=== PATIENT | male | born 1930 | race Caucasian/White ===

== ENCOUNTER 2016-10-19 11:30 | Inpatient (IN) | payer MEDICARE, BC ==
[2016-10-19] MEDS ORDERED: SODIUM CHLORIDE 0.9% 500 ML IV STA (11:49)
[2016-10-19 11:51] LABS: Glucose,Whole Blood 100 mg/dL (75-99)
--- NOTE | 2016-10-19 11:58 | ED ---
General Adult HPI - General Chief complaint: Dizziness Stated complaint: RT SIDE HEAVYNESS, DIZZINESS Time Seen by Provider: 10/19/16 11:49 Source: patient, family, RN notes reviewed, old records reviewed Mode of arrival: wheelchair Limitations: no limitations - History of Present Illness Initial comments: This is an 85-year-old male the ER for evaluation of right-sided weakness and heaviness. Patient has history of CVA, memory issues. Patient is also history of dementia and CEA, patient coming in today with right-sided weakness, brings patient in with right-sided weakness for a day and a half or so. Patient is unable to tell her when she is noticing this but she has noticed him having increased weakness on his right side. So there is no sudden onset of symptoms or known onset of symptoms. No traumas. Patient's right ear for further evaluation. Patient's poor strain history is obtained from - Related Data Home Medications Medication Instructions Recorded Confirmed ALPRAZolam [Xanax] 0.25 mg PO TID 10/19/16 10/19/16 Donepezil [Aricept] 10 mg PO HS 10/19/16 10/19/16 Memantine HCl [Namenda Xr] 28 mg PO DAILY 10/19/16 10/19/16 Allergies Allergy/AdvReac Type Severity Reaction Status Date / Time No Known Allergies Allergy Verified 10/19/16 11:44 Review of Systems ROS Statement: Those systems with pertinent positive or pertinent negative responses have been documented in the HPI. ROS Other: All systems not noted in ROS Statement are negative. Past Medical History Additional Past Medical History / Comment(s): dementia History of Any Multi-Drug Resistant Organisms: None Reported Additional Past Surgical History / Comment(s): carotid endartectomy, sleep apnea surgery Past Psychological History: No Psychological Hx Reported Smoking Status: Never smoker Past Alcohol Use History: None Reported Past Drug Use History: None Reported General Exam - General Exam Comments Initial Comments: NIH of 3, patient unable to follow direction Limitations: no limitations General appearance: alert, in no apparent distress Head exam: Present: atraumatic, normocephalic, normal inspection Eye exam: Present: normal appearance, PERRL, EOMI. Absent: scleral icterus, conjunctival injection, periorbital swelling ENT exam: Present: normal exam, mucous membranes moist Neck exam: Present: normal inspection. Absent: tenderness, meningismus, lymphadenopathy Respiratory exam: Present: normal lung sounds bilaterally. Absent: respiratory distress, wheezes, rales, rhonchi, stridor Cardiovascular Exam: Present: regular rate, normal rhythm, normal heart sounds. Absent: systolic murmur, diastolic murmur, rubs, gallop, clicks GI/Abdominal exam: Present: soft, normal bowel sounds. Absent: distended, tenderness, guarding, rebound, rigid Extremities exam: Present: normal inspection, full ROM, normal capillary refill. Absent: tenderness, pedal edema, joint swelling, calf tenderness Back exam: Present: normal inspection Neurological exam: Present: alert, oriented X3, CN II-XII intact Psychiatric exam: Present: normal affect, normal mood Skin exam: Present: warm, dry, intact, normal color. Absent: rash Course Vital Signs 10/19/16 10/19/16 10/19/16 11:34 12:09 12:21 Temperature 97.4 F L Pulse Rate 69 68 66 Respiratory 16 18 15 Rate Blood Pressure 211/92 194/87 197/99 O2 Sat by Pulse 96 99 98 Oximetry 10/19/16 10/19/16 10/19/16 13:18 13:23 13:57 Temperature Pulse Rate 64 72 71 Respiratory 15 15 Rate Blood Pressure 214/95 205/94 O2 Sat by Pulse 96 Oximetry 10/19/16 14:12 Temperature Pulse Rate 75 Respiratory 16 Rate Blood Pressure 164/74 O2 Sat by Pulse 94 L Oximetry - Reevaluation(s) Reevaluation #1: 10/19/16 14:25 Patient has no significant clinical improvement EKG Findings - EKG Comments: EKG Findings:: EKG shows normal sinus rhythm as is a 5, NE 132, QRS 140, QTC 480 Medical Decision Making - Medical Decision Making 85 now here for evaluation of CVA. Right-sided weakness with history of altered mental status and memory deficit. Patient will be admitted for neurological evaluation - Lab Data Result diagrams: 10/19/16 12:00 10/19/16 12:00 Lab Results 10/19/16 10/19/16 10/19/16 Range/Units 11:49 12:00 12:00 WBC 6.8 (3.8-10.6) k/uL RBC 4.92 (4.30-5.90) m/uL Hgb 15.8 (13.0-17.5) gm/dL Hct 46.6 (39.0-53.0) % MCV 94.7 (80.0-100.0) fL MCH 32.1 (25.0-35.0) pg MCHC 33.9 (31.0-37.0) g/dL RDW 13.7 (11.5-15.5) % Plt Count 161 (150-450) k/uL Neutrophils % 45 % Lymphocytes % 43 % Monocytes % 6 % Eosinophils % 2 % Basophils % 1 % Neutrophils # 3.1 (1.3-7.7) k/uL Lymphocytes # 2.9 (1.0-4.8) k/uL Monocytes # 0.4 (0-1.0) k/uL Eosinophils # 0.1 (0-0.7) k/uL Basophils # 0.1 (0-0.2) k/uL PT (9.0-12.0) sec INR (<1.1) APTT (22.0-30.0) sec Sodium (137-145) mmol/L Potassium (3.5-5.1) mmol/L Chloride (98-107) mmol/L Carbon Dioxide (22-30) mmol/L Anion Gap mmol/L BUN (9-20) mg/dL Creatinine (0.66-1.25) mg/dL Est GFR (MDRD) Af Amer (>60 ml/min/1.73 sqM) Est GFR (MDRD) Non-Af (>60 ml/min/1.73 sqM) Glucose (74-99) mg/dL POC Glucose (mg/dL) 100 H (75-99) mg/dL POC Glu [place] [employer] ID [place]a [place] Calcium (8.4-10.2) mg/dL Phosphorus (2.5-4.5) mg/dL Magnesium (1.6-2.3) mg/dL Total Bilirubin (0.2-1.3) mg/dL AST (17-59) U/L ALT (21-72) U/L Alkaline Phosphatase (38-126) U/L Total Creatine Kinase 72 (55-170) U/L CK-MB (CK-2) 1.6 (0.0-2.4) ng/mL CK-MB (CK-2) Rel Index 2.2 Troponin I 0.021 (0.000-0.034) ng/mL Total Protein (6.3-8.2) g/dL Albumin (3.5-5.0) g/dL 10/19/16 10/19/16 Range/Units 12:00 12:00 WBC (3.8-10.6) k/uL RBC (4.30-5.90) m/uL Hgb (13.0-17.5) gm/dL Hct (39.0-53.0) % MCV (80.0-100.0) fL MCH (25.0-35.0) pg MCHC (31.0-37.0) g/dL RDW (11.5-15.5) % Plt Count (150-450) k/uL Neutrophils % % Lymphocytes % % Monocytes % % Eosinophils % % Basophils % % Neutrophils # (1.3-7.7) k/uL Lymphocytes # (1.0-4.8) k/uL Monocytes # (0-1.0) k/uL Eosinophils # (0-0.7) k/uL Basophils # (0-0.2) k/uL PT 11.6 (9.0-12.0) sec INR 1.2 (<1.1) APTT 23.5 (22.0-30.0) sec Sodium 144 (137-145) mmol/L Potassium 3.8 (3.5-5.1) mmol/L Chloride 106 (98-107) mmol/L Carbon Dioxide 27 (22-30) mmol/L Anion Gap 11 mmol/L BUN 13 (9-20) mg/dL Creatinine 1.11 (0.66-1.25) mg/dL Est GFR (MDRD) Af Amer >60 (>60 ml/min/1.73 sqM) Est GFR (MDRD) Non-Af >60 (>60 ml/min/1.73 sqM) Glucose 106 H (74-99) mg/dL POC Glucose (mg/dL) (75-99) mg/dL POC Glu [place] ID Calcium 9.1 (8.4-10.2) mg/dL Phosphorus 3.0 (2.5-4.5) mg/dL Magnesium 1.8 (1.6-2.3) mg/dL Total Bilirubin 0.9 (0.2-1.3) mg/dL AST 35 (17-59) U/L ALT 38 (21-72) U/L Alkaline Phosphatase 69 (38-126) U/L Total Creatine Kinase (55-170) U/L CK-MB (CK-2) (0.0-2.4) ng/mL CK-MB (CK-2) Rel Index Troponin I (0.000-0.034) ng/mL Total Protein 6.5 (6.3-8.2) g/dL Albumin 3.8 (3.5-5.0) g/dL - Radiology Data Radiology results: report reviewed, image reviewed Disposition Clinical Impression: CVA (cerebral vascular accident) Disposition: ADMITTED IP TO THIS [facility] Condition: Fair Referrals: Jessica Ray DO [Primary Care Provider] - 1-2 days
[2016-10-19 12:16] LABS: Basophils # (A) 0.1 k/uL (0-0.2); Basophils % (A) 1 %; CH 31.3; CHCM 33.3; Eosinophils # (A) 0.1 k/uL (0-0.7); Eosinophils % (A) 2 %; HCT 46.6 % (39.0-53.0); HDW 2.39; HGB 15.8 gm/dL (13.0-17.5); Luc # (Auto) 0.21; Luc % (Auto) 3; Lymphocytes # (A) 2.9 k/uL (1.0-4.8); Lymphocytes % (A) 43 %; MCH 32.1 pg (25.0-35.0); MCHC 33.9 g/dL (31.0-37.0); MCV 94.7 fL (80.0-100.0); Mean Platelet Volume 8.4; Monocytes # (A) 0.4 k/uL (0-1.0); Monocytes % (A) 6 %; Neutrophils # (A) 3.1 k/uL (1.3-7.7); Neutrophils % (A) 45 %; RBC 4.92 m/uL (4.30-5.90); RDW 13.7 % (11.5-15.5); WBC 6.8 k/uL (3.8-10.6); WBC (Perox) 6.81
--- NOTE | 2016-10-19 12:28 | CT ---
EXAMINATION TYPE: CT brain wo con DATE OF EXAM: 10/19/2016 12:22 PM COMPARISON: NONE HISTORY: ams, dizzy, right arm numbness CT DLP: 978.[address] of the brain was performed. The ventricles, basal cisterns and sulci overlying the cerebral convexities demonstrate mild enlargem ent. Small remote insult high right frontal parietal lobe. There is no evidence for intracranial hemorrhage or sulcal effacement. There is decreased attenuation about the periventricular white matter and deep white matter of both c erebral hemispheres, compatible with chronic small vessel ischemia. Differential diagnosis does inclu de demyelination. No mass effects are seen.No midline shift. Osseous calvarium is intact. If symptoms persist consider MRI. IMPRESSION: 1. Age related atrophic and chronic small vessel ischemic change without acute intracranial process s een at this time.
[2016-10-19 12:29] LABS: ALT 38 U/L (21-72); AST 35 U/L (17-59); Alkaline Phosphatase 69 U/L (38-126); Anion Gap 11 mmol/L; Blood Urea Nitrogen 13 mg/dL (9-20); Calcium 9.1 mg/dL (8.4-10.2); Carbon Dioxide 27 mmol/L (22-30); Chloride 106 mmol/L (98-107); Glucose 106 mg/dL (74-99); Magnesium 1.8 mg/dL (1.6-2.3); Non-African American GFR(MDRD) >60 (>60 ml/min/1.73 sqM); Potassium 3.8 mmol/L (3.5-5.1); Sodium 144 mmol/L (137-145); Total Bilirubin 0.9 mg/dL (0.2-1.3); Total Protein 6.5 g/dL (6.3-8.2)
[2016-10-19 12:38] LABS: INR 1.2 (<1.1); Partial Thromboplastin Time 23.5 sec (22.0-30.0); Prothrombin Time 11.6 sec (9.0-12.0)
[2016-10-19 12:51] LABS: Creatine Kinase MB 1.6 ng/mL (0.0-2.4); Troponin I 0.021 ng/mL (0.000-0.034)
[2016-10-19] MEDS ORDERED: hydrALAZINE HCL 20 MG/ML 1 ML VIAL IVP STA (13:18)
[2016-10-19] MEDS ORDERED: LABETALOL SYRINGE 5 MG/ML IVP STA (14:01)
[2016-10-19] MEDS ORDERED: ASPIRIN 325 MG TAB PO STA (14:22)
[2016-10-19] MEDS: SODIUM CHLORIDE 0.9% 1,000 ML IV SCH (14:57)
[2016-10-19] MEDS ORDERED: TEMAZEPAM 15 MG CAP PO PRN (16:53)
[2016-10-19] MEDS ORDERED: HYDROcodone/APAP 5-325MG 1 EACH TAB PO PRN (16:53)
[2016-10-19] MEDS ORDERED: HYDROmorphone 1 MG/ML 1 ML SYRINGE IVP PRN (16:53)
--- NOTE | 2016-10-19 17:26 | XR ---
EXAMINATION TYPE: XR chest 1V portable DATE OF EXAM: 10/19/2016 5:17 PM CLINICAL HISTORY: Pneumonia per order TECHNIQUE: Single AP portable frontal upright view of the chest is obtained. COMPARISON: None FINDINGS: There is patchy left basilar atelectasis. There is no suspicious focal air space opacity, pleural effusion, or pneumothorax seen. The cardiac silhouette size is within normal limits. The o sseous structures are intact. IMPRESSION: Patchy left basilar linear atelectasis, no suspicious focal infiltrate currently.
[2016-10-19 17:58] LABS: Appearance,Urine Clear (Clear); Bilirubin,Urine Negative (Negative); Glucose,Urine (UA) Negative (Negative); Ketones,Urine Negative (Negative); Leukocyte Esterase,Urine Negative (Negative); Nitrite,Urine Negative (Negative); PH, Urine 6.5 (5.0-8.0); Protein,Urine Negative (Negative); Specific Gravity,Urine 1.002 (1.001-1.035); UA Billing (MACRO vs. MICRO) CHEM; Urobilinogen,Urine <2.0 mg/dL (<2.0)
--- NOTE | 2016-10-19 19:49 | US ---
EXAMINATION TYPE: US carotid duplex BILAT DATE OF EXAM: 10/19/2016 7:32 PM COMPARISON: NONE CLINICAL HISTORY: right sided weakness possible CVA. Confusion EXAM MEASUREMENTS: RIGHT: Peak Systolic Velocity (PSV) cm/sec ----- Right CCA: 56.0 ----- Right ICA: 0.0 ----- Right ECA: 157.8 ICA/CCA ratio: 0.0 RIGHT: End Diastole cm/sec ----- Right CCA: 7.7 ----- Right ICA: 0.0 ----- Right ECA: 16.0 LEFT: Peak Systolic Velocity (PSV) cm/sec ----- Left CCA: 92.4 ----- Left ICA: 100.3 ----- Left ECA: 80.6 ICA/CCA ratio: 1.1 LEFT: End Diastole cm/sec ----- Left CCA: 17.5 ----- Left ICA: 25.4 ----- Left ECA: 11.6 VERTEBRALS (direction of flow): Right Vertebral: Antegrade Left Vertebral: Antegrade TECHNOLOGIST IMPRESSION: Severe amount of plaque visualized in bilateral bulbs/ICAs. Elevated veloci ties within the right ECA and left proximal CCA. Unable to detect velocities within the right ICA- pr obable occlusion Grayscale images show moderate to severe eccentric plaque right carotid bulb extending into proximal internal carotid artery. Color flow cannot be detected shortly after origin. There is more mild to mo derate eccentric plaque at left carotid bulb. Velocity measurements and ratios are within normal limi ts on the left. 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 Consider CTA or MRA neck confirmation. Criteria for Assigning % of Stenosis / Diameter reduction (Estimation based on the indirect measurements of the internal carotid artery velocities (ICA PSV). 6. Total occlusion=unable to detect flow.
[2016-10-19] MEDS: hydrALAZINE HCL 20 MG/ML 1 ML VIAL IVP PRN (20:47)
[2016-10-19] MEDS: DONEPEZIL 10 MG TAB PO SCH (21:02)
[2016-10-19] MEDS: HEPARIN SODIUM,PORCINE 5,000 UNIT/ML 1 ML VIAL SQ SCH (21:03)
[2016-10-19] MEDS ORDERED: RX INFO: IV CONTRAST WAS GIVEN 1 EACH MISC MISCELLANE PRN (21:07)
[2016-10-19] MEDS: ALPRAZolam 0.25 MG TAB PO PRN (22:11)
[2016-10-19] MEDS: LORazepam 2 MG/ML SYRINGE IV PRN (23:11)
--- NOTE | 2016-10-19 23:48 | HP ---
DATE OF ADMISSION: 10/19/2016 CHIEF COMPLAINTS: Dizziness, difficulty in walking and weakness on the right side. HISTORY OF PRESENT ILLNESS: This 85-year-old gentleman with a past history of dementia, history of memory impairment, myocardial infarction, DJD, sleep apnea, history of CVA, TIA, history of adenoidectomy, hernia repair, history of anxiety, being followed by Dr. Ray in the outpatient setting, was noted to have right-sided weakness on Wednesday. The patient had initially numbness of the right upper limb and subsequently he was dragging the right foot. Patient has had difficulty walking. Despite family's insistence, the patient did not come to the hospital, but because of persistent symptoms the patient was taken to [facility] today and admitted for further evaluation and treatment. The patient is confused and denying that he has any problems, but I discussed the case with the family at the bedside. CT scan of the brain showed age-related atrophic and chronic small vessel ischemic changes without any acute intracranial process at this time. Neurology evaluation is in progress. There is no history of any fever, rigor, or chills. No history of headache, loss of consciousness, seizures. PAST MEDICAL HISTORY: 1. History of dementia. 2. History of memory impairment. 3. CVA, TIA. 4. Myocardial infarction. 5. DJD. 6. Sleep apnea. 7. History of adenoidectomy. 8. Hernia repair. 9. History of anxiety. Medications prior to admission include: 1. Namenda XR 28 mg p.o. daily. 2. Aricept 10 mg at bedtime. 3. Xanax 0.25 t.i.d. ALLERGIES: NONE. FAMILY HISTORY: History of dementia. SOCIAL HISTORY: No history of smoking. No history of alcohol intake. REVIEW OF SYSTEMS: ENT: Diminishing hearing. Diminished vision. CARDIOVASCULAR SYSTEM: No angina, palpitations. RESPIRATORY SYSTEM: No cough, hemoptysis. GI: No nausea. : No dysuria. NERVOUS SYSTEM: As mentioned earlier. ALLERGY/IMMUNOLOGY: No asthma, hayfever. MUSCULOSKELETAL: As mentioned earlier. HEMATOLOGY/ONCOLOGY: No history of anemia. ENDOCRINE: No history of diabetes, hypothyroidism. CONSTITUTIONAL: As mentioned earlier. DERMATOLOGY: Negative. RHEUMATOLOGY: Negative. PSYCHIATRY: As mentioned earlier. PHYSICAL EXAM: Patient is alert and oriented x2. Pulse 67, blood pressure 175/85, respiration 18, temperature 96.8, pulse ox 95% on room air. HEENT: Conjunctivae normal. Oral mucosa moist. NECK: No jugular venous distention. No carotid bruit. No lymph node enlargement. CARDIOVASCULAR SYSTEM: S1, S2 muffled. No S3. No S4. RESPIRATORY: Breath sounds diminished at the base. Bilateral scattered rhonchi and crackles. ABDOMEN: Soft, obese, nontender. No mass palpable. LEGS: No edema. No swelling. NERVOUS SYSTEM: Higher function as mentioned earlier. Cranial nerves 2-12 grossly intact. Minimal weakness on the right side present; otherwise, no [id number] incoordination. SKIN: No ulcer, rash, bleeding. LYMPHATICS: No lymph node palpable in neck, axilla or groin. LAB INVESTIGATIONS: CBC within normal limits. INR 1.2. Glucose 106. ASSESSMENT: 1. Weakness of the right side caused by left hemispheric acute stroke. 2. Gait dysfunction. 3. Change in mental status, metabolic encephalopathy, acute on chronic. 4. Dementia. 5. History of cerebrovascular accident, transient ischemic attack. 6. History of memory impairment. 7. History of coronary artery disease, myocardial infarction. 8. History of degenerative joint disease. 9. Sleep apnea. 10. History of adenoidectomy. 11. History of hernia repair. 12. History of claustrophobia. 13. History of anxiety. 14. Obesity with body mass index of 30.1. RECOMMENDATIONS AND DISCUSSION: In this 85-year-old gentleman who presented with multiple complex medical issues, we will monitor the patient closely, continue the current medications. I recommend antiplatelet agents. Neurology consultation. Neurovascular workup. Otherwise, of hypertension because of the possibility of stroke. We will closely monitor. Prognosis guarded. Further recommendations to follow. Discussed with the family, who understands and agrees. A copy of dictation is being forwarded to Dr. Ray, who is the primary physician. LALY
[2016-10-20] MEDS: hydrALAZINE HCL 20 MG/ML 1 ML VIAL IVP PRN ×3 (00:07→22:09)
[2016-10-20 06:31] LABS: Basophils # (A) 0.1 k/uL (0-0.2); Basophils % (A) 1 %; CH 31.3; CHCM 33.4; Eosinophils # (A) 0.1 k/uL (0-0.7); Eosinophils % (A) 1 %; HCT 50.7 % (39.0-53.0); HDW 2.39; HGB 16.4 gm/dL (13.0-17.5); Luc # (Auto) 0.26; Luc % (Auto) 3; Lymphocytes # (A) 3.5 k/uL (1.0-4.8); Lymphocytes % (A) 35 %; MCH 30.5 pg (25.0-35.0); MCHC 32.4 g/dL (31.0-37.0); MCV 94.2 fL (80.0-100.0); Mean Platelet Volume 8.1; Monocytes # (A) 0.6 k/uL (0-1.0); Monocytes % (A) 5 %; Neutrophils # (A) 5.5 k/uL (1.3-7.7); Neutrophils % (A) 55 %; RBC 5.38 m/uL (4.30-5.90); RDW 13.9 % (11.5-15.5); WBC 10.1 k/uL (3.8-10.6); WBC (Perox) 9.98
[2016-10-20 06:43] LABS: Anion Gap 12 mmol/L; Blood Urea Nitrogen 12 mg/dL (9-20); Calcium 9.2 mg/dL (8.4-10.2); Carbon Dioxide 24 mmol/L (22-30); Chloride 104 mmol/L (98-107); Cholesterol 170 mg/dL (<200); Glucose 106 mg/dL (74-99); HDL Cholesterol 50 mg/dL (40-60); Non-African American GFR(MDRD) >60 (>60 ml/min/1.73 sqM); Potassium 4.1 mmol/L (3.5-5.1); Sodium 140 mmol/L (137-145); Triglycerides 105 mg/dL (<150)
[2016-10-20] MEDS: HEPARIN SODIUM,PORCINE 5,000 UNIT/ML 1 ML VIAL SQ SCH ×2 (08:00→20:06)
[2016-10-20] MEDS: MEMANTINE 10 MG TAB PO SCH ×2 (08:01→20:06)
[2016-10-20] MEDS ORDERED: ASPIRIN 325 MG TAB PO SCH (09:00)
--- NOTE | 2016-10-20 10:55 | CT ---
EXAMINATION TYPE: CT angio head neck DATE OF EXAM: 10/19/2016 10:51 PM COMPARISON: NONE HISTORY: Occluded R ICA. CT DLP: 451.5 mGycm Automated exposure control for dose reduction was used. TECHNIQUE: Performed with IV Contrast, patient injected with 65 mL of Omnipaque 350. Three-D reconstructed images performed separately on the [employer] computer by the technologist are pres ent.. FINDINGS: CTA neck: Limited CT sections are obtained through the lung apices which appear unremarkable. Portion of the thyroid visualized is normal. The left common carotid artery bifurcates normally into internal and external carotid arteries. The i nternal carotid artery extends to the carotid siphon. The right common carotid artery extends to the bifurcation. The internal carotid artery on the right is occluded at the bifurcation. External branch es remain patent. Vertebral arteries are codominant. Vertebral arteries extend to the intracranial portion. Atheromatous plaque is at the left internal carotid artery without significant flow-limiting stenosis . CTA [place]: Vertebral arteries combine to a normal basilar artery. The posterior cerebral v asculature is patent on the right. No left posterior cerebral artery is identified. However, no infar ct is evident. The right internal carotid artery is occluded prior to the intracranial portion. The l eft internal carotid bifurcates into A1 and M1 segments. The anterior communicating artery is patent. Right A1 and M1 segments are patent. Middle cerebral artery branches bilaterally appear normal witho ut aneurysm or occlusion. A2 segments appear normal bilaterally. Note is made of a right watershed region infarct. IMPRESSION: 1. 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 2. 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 3. ANTERIOR COMMUNICATING ARTERY IS PATENT. CROSSOVER FLOW FROM THE LEFT TO THE RIGHT IS EVIDENT. 4. THE LEFT POSTERIOR COMMUNICATING ARTERY IS NOT IDENTIFIED. HOWEVER, NO OCCLUDED VESSEL OR INFARCT IS EVIDENT. 5. OLD RIGHT WATERSHED INFARCT.
--- NOTE | 2016-10-20 11:06 | P.GSCN ---
<Bella Cornell - Last Filed: 10/20/16 11:06> History of Present Illness Consult date: 10/20/16 Reason for Consult: Carotid stenosis. Requesting physician: Yuan Grant History of present illness: This 85 y/o male with a past medical history of dementia, CVA, and TIA , presented to ER secondary to right sided weakness per family. According to his , the patient appeared to be dragging his right foot and his right side seemed weaker than usual. The patient did not notice these symptoms and initially refused to come to the hospital, however, the symptoms did persist so he was brought in by his and admitted for evaluation and work-up. He had no other associated symptoms. Review of Systems 14 point review of systems completed with difficulty as patient is confused with limited short term memory, it is negative except as noted. 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 Reports as per HPI, Reports prior amputations - Neurological Reports confusion, Reports memory loss Past Medical History Past Medical History: CVA/TIA, Dementia, Memory Impairment, Myocardial Infarction ([place]), Osteoarthritis (OA), Sleep Apnea/CPAP/BIPAP Additional Past Medical History / Comment(s): dementia, [place] -"FAMILY STATES PER EKG AGE UNDETERMINED", "HEAD ACHES" Last Myocardial Infarction Date:: unk History of Any Multi-Drug Resistant Organisms: None Reported Past Surgical History: Adenoidectomy, Hernia Repair Additional Past Surgical History / Comment(s): RT carotid endartectomy," not sure it they took tonsils out or not" sleep apnea surgery, cataracts, rotator cuff sx ,colonoscopy, 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 Past Anesthesia/Blood Transfusion Reactions: No Reported Reaction Additional Past Anesthesia/Blood Transfusion Reaction / Comm: clausterphobia Past Psychological History: Anxiety Additional Psychological History / Comment(s): pt lives with and daughter in 1 level home,has 2 steps to get into home.have pets cat/dog . no outside services received. pt independant no assistive devices. 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 Smoking Status: Never smoker Past Alcohol Use History: None Reported Past Drug Use History: None Reported - Past Family History Mother Family Medical History: No Reported History Additional Family Medical History / Comment(s): in mva Father Family Medical History: No Reported History, Dementia Medications and Allergies Home Medications Medication Instructions Recorded Confirmed Type ALPRAZolam [Xanax] 0.25 mg PO TID 10/19/16 10/19/16 History Donepezil [Aricept] 10 mg PO HS 10/19/16 10/19/16 History Memantine HCl [Namenda Xr] 28 mg PO DAILY 10/19/16 10/19/16 History Allergies Allergy/AdvReac Type Severity Reaction Status Date / Time No Known Allergies Allergy Verified 10/19/16 11:44 Surgical - Exam Vital Signs Temp Pulse Resp BP Pulse Ox 97.4 F L 69 16 211/92 96 10/19/16 11:34 10/19/16 11:34 10/19/16 11:34 10/19/16 11:34 10/19/16 11:34 - General well developed, well nourished, no distress - Eyes PERRL, normal ocular movement - Neck no masses, no bruits, trachea midline - Respiratory normal expansion, normal respiratory effort, clear to auscultation - Cardiovascular Rhythm: regular Heart Sounds: normal: S1, S2 - Abdomen Abdomen: soft, non tender, bowel sounds - Integumentary no rash - Neurologic Oriented to person, place, states it 2013. Appropriate terminal make up operator memory: able to discuss his schooling, service, courting his . Short term memory diminished: unable to recall why he's in the hospital or events leading up to hospitalization. confused, memory loss - Musculoskeletal Equal strength bilaterally. 5/5 upper extremities. 5/5 lower extremities. - Psychiatric oriented to person, oriented to place, speech is normal Results - Labs 10/20/16 05:40 10/20/16 05:40 Abnormal Lab Results - Last 24 Hours (Table) 10/20/16 Range/Units 05:40 Glucose 106 H (74-99) mg/dL Diabetes panel 10/20/16 Range/Units 05:40 Sodium 140 (137-145) mmol/L Potassium 4.1 (3.5-5.1) mmol/L Chloride 104 (98-107) mmol/L Carbon Dioxide 24 (22-30) mmol/L BUN 12 (9-20) mg/dL Creatinine 1.10 (0.66-1.25) mg/dL Glucose 106 H (74-99) mg/dL Calcium 9.2 (8.4-10.2) mg/dL Triglycerides 105 (<150) mg/dL HDL Cholesterol 50 (40-60) mg/dL Calcium panel 10/20/16 Range/Units 05:40 Calcium 9.2 (8.4-10.2) mg/dL Pituitary panel 10/20/16 Range/Units 05:40 Sodium 140 (137-145) mmol/L Potassium 4.1 (3.5-5.1) mmol/L Chloride 104 (98-107) mmol/L Carbon Dioxide 24 (22-30) mmol/L BUN 12 (9-20) mg/dL Creatinine 1.10 (0.66-1.25) mg/dL Glucose 106 H (74-99) mg/dL Calcium 9.2 (8.4-10.2) mg/dL Adrenal panel 10/20/16 Range/Units 05:40 Sodium 140 (137-145) mmol/L Potassium 4.1 (3.5-5.1) mmol/L Chloride 104 (98-107) mmol/L Carbon Dioxide 24 (22-30) mmol/L BUN 12 (9-20) mg/dL Creatinine 1.10 (0.66-1.25) mg/dL Glucose 106 H (74-99) mg/dL Calcium 9.2 (8.4-10.2) mg/dL - Imaging Chest x-ray: report reviewed, image reviewed EKG: image reviewed Additional studies: Carotid doppler and Brain CT reviewed. Assessment and Plan (1) Carotid stenosis Status: Acute (2) History of CVA (cerebrovascular accident) Status: Acute (3) Dementia Status: Acute Plan: !. Right sided weakness per , resolving, possible CVA, Neurology consulted. 2. Blood pressure control. 3. Would recommend ASA, statin. 4. PT/OT evaluation and treatment. Time with Patient: Greater than 30 <Laci Blair - Last Filed: 10/20/16 11:16> History of Present Illness History of present illness: Nurse practitioner notes reviewed and accepted. Impression: #1: Patient is status post left carotid endarterectomy. Left carotid is widely patent. #2: Totally occluded right internal carotid #3: Significant dementia with severe short-term memory loss, which is chronic and problematic. Recommendation: Would continue to treat patient medically, mainly with measures to protect him from issues related to fall potential based on his confusion. Could consider adding Plavix, although this is fairly marginal in its potential to change his clinical status or prognosis. There are no surgical therapies appropriate in this patient. There is no surgical correction for an occluded internal carotid. Surgical - Exam Osteopathic Statement: *. No significant issues noted on an osteopathic structural exam other than those noted in the History and Physical/Consult. Vital Signs Temp Pulse Resp BP Pulse Ox 97.4 F L 69 16 211/92 96 10/19/16 11:34 10/19/16 11:34 10/19/16 11:34 10/19/16 11:34 10/19/16 11:34 Results - Labs 10/20/16 05:40 10/20/16 05:40 Abnormal Lab Results - Last 24 Hours (Table) 10/20/16 Range/Units 05:40 Glucose 106 H (74-99) mg/dL Diabetes panel 10/20/16 Range/Units 05:40 Sodium 140 (137-145) mmol/L Potassium 4.1 (3.5-5.1) mmol/L Chloride 104 (98-107) mmol/L Carbon Dioxide 24 (22-30) mmol/L BUN 12 (9-20) mg/dL Creatinine 1.10 (0.66-1.25) mg/dL Glucose 106 H (74-99) mg/dL Calcium 9.2 (8.4-10.2) mg/dL Triglycerides 105 (<150) mg/dL HDL Cholesterol 50 (40-60) mg/dL Calcium panel 10/20/16 Range/Units 05:40 Calcium 9.2 (8.4-10.2) mg/dL Pituitary panel 10/20/16 Range/Units 05:40 Sodium 140 (137-145) mmol/L Potassium 4.1 (3.5-5.1) mmol/L Chloride 104 (98-107) mmol/L Carbon Dioxide 24 (22-30) mmol/L BUN 12 (9-20) mg/dL Creatinine 1.10 (0.66-1.25) mg/dL Glucose 106 H (74-99) mg/dL Calcium 9.2 (8.4-10.2) mg/dL Adrenal panel 10/20/16 Range/Units 05:40 Sodium 140 (137-145) mmol/L Potassium 4.1 (3.5-5.1) mmol/L Chloride 104 (98-107) mmol/L Carbon Dioxide 24 (22-30) mmol/L BUN 12 (9-20) mg/dL Creatinine 1.10 (0.66-1.25) mg/dL Glucose 106 H (74-99) mg/dL Calcium 9.2 (8.4-10.2) mg/dL
[2016-10-20] MEDS: SODIUM CHLORIDE 0.9% 1,000 ML IV SCH ×2 (11:42→22:06)
--- NOTE | 2016-10-20 17:40 | P.PN ---
Subjective Date of service 10/20/2016. Progress note being dictated for Dr. Thompson. Interval history: This is a 85-year-old gentleman admitted with right-sided weakness secondary to left hemispheric acute stroke in a patient with history of CVA, TIA, dementia and multiple other medical issues. Confusion persist, alert and oriented 1 receiving hydralazine for hypertension. Sitter at bedside. Short-term memory present, does not recall events leading to this hospitalization. Speech Fluent. Telemetry sinus rhythm. Denies chest pain, palpitations or increasing shortness of breath. CTA equal reporting complete occlusion of right internal carotid artery, old right watershed infarct. Neuro consult in place with recommendations pending. Objective - Vital Signs Vital signs: Vital Signs Temp 96.9 F L 10/20/16 16:00 Pulse 81 10/20/16 16:00 Resp 18 10/20/16 16:00 BP 183/84 10/20/16 16:00 Pulse Ox 93 L 10/20/16 16:00 Intake & Output 10/19/16 10/20/16 10/20/16 18:59 06:59 18:59 Intake Total 700 380 Output Total 900 Balance -200 380 Weight 99.6 kg Intake: IV 400 0 Sodium Chloride 0.9% 1, 400 0 000 ml @ 50 mls/hr IV . Q20H [facility] Rx#:[id number] Intake, IV Titration 300 Amount Sodium Chloride 0.9% 1, 300 000 ml @ 50 mls/hr IV . Q20H [facility] Rx#:[id number] Oral 380 Output: Urine 900 Other: Voiding Method Bedside Commode Urinal Urinal - Exam PHYSICAL EXAM: VITAL SIGNS: As above GENERAL: [Sitting up in bed, no acute distress] HEENT: [Pupils equal conjunctiva normal.] NECK: [Supple, no JVD] RESPIRATORY EFFORT:[Normal] LUNGS: [Clear, no rhonchi no crackles no wheezing] CARDIOVASCULAR[regular S1 and S2, no edema] GI: [Abdomen soft, nontender, positive bowel sounds.] PSYCH: [Alert and oriented -2, disoriented to year ,pleasantly confused] NEURO: Speech: Speech fluent ,Strength equal in all 4 extremities, 5 out of 5. - Labs CBC & Chem 7: 10/20/16 05:40 10/20/16 05:40 Labs: Abnormal Lab Results - Last 24 Hours (Table) 10/20/16 Range/Units 05:40 Glucose 106 H (74-99) mg/dL Assessment and Plan Plan: 1. Weakness on the right secondary to left hemispheric acute stroke, old right watershed infarct per CT,]. 2. [Totally occluded right internal carotid, per carotid ultrasound, CTA 3.] Gait dysfunction. 3. [Change in mental status, acute on chronic metabolic encephalopathy]. 4. [Dementia with chronic short-term memory loss]. 5. [History of CVA, TIA]. 6. [CAD, histor of [place]. 7. [Degenerative joint disease]. 8. Sleep apnea 9. History of anxiety 10. History of claustrophobia 11. Obesity, BMI 30.1 Plan continue on current medical regime ,monitoring and symptomatic treatment. Evaluated by cardiothoracic/vascular surgery with recommendations noted; maximizing medical therapy, no surgical intervention. Neuro consult in place, recommendations pending. PT/OT. Discharge planning in progress for potential subacute rehab. Prognosis guarded given multiple complex medical issues. Further recommendations to follow. The impression and plan of care has been dictated as directed. : I performed a H&P examination of this patient and discussed the same with the dictator. I agree with the dictator's note. Any additional findings/opinions/ etc. will be noted.
[2016-10-20] MEDS: DONEPEZIL 10 MG TAB PO SCH (20:06)
--- NOTE | 2016-10-20 20:19 | PN ---
DATE OF SERVICE: 10/20/2016 This 85-year-old gentleman who was admitted with weakness of the right side caused by left hemispheric acute stroke, is being closely monitored at this time. Seen and evaluated the patient along with the nurse practitioner. Please refer to the nurse practitioner notes and impression documented for further information. The patient had watershed infarct in the CAT scan. Dr. Blair's input appreciated. Guarded prognosis. Further recommendations to follow.
--- NOTE | 2016-10-20 20:26 | P.PN ---
Subjective Principal diagnosis: CVA Patient is an 85-year-old male admitted with right-sided weakness secondary to left hemispheric acute stroke. Patient has a history of CVA, TIA, dementia and multiple other medical issues. Patient experiences confusion and a persistent ongoing basis, is alert and oriented times 12 intermittently. He is currently receiving hydralazine for hypertension. Patient's spouse is at bedside. Patient does have some short-term memory present but has difficulty with remote memory and concentration. Since his last assessment on , CT angiogram reportedly complete occlusion of the right internal carotid artery, old right watershed infarct. On initial contact today, the patient was supine in bed resting with spouse at the bedside. He was in no acute distress. Patient was extremely confused and had limited short-term memory and greatly decreased remote memory. Objective - Vital Signs Vital signs: Vital Signs Temp 96.9 F L 10/20/16 16:00 Pulse 81 10/20/16 16:00 Resp 18 10/20/16 16:00 BP 183/84 10/20/16 16:00 Pulse Ox 93 L 10/20/16 16:00 Intake & Output 10/20/16 10/20/16 10/21/16 06:59 18:59 06:59 Intake Total 700 580 Output Total 900 200 Balance -200 380 Weight 99.6 kg Intake: IV 400 0 Sodium Chloride 0.9% 1, 400 0 000 ml @ 50 mls/hr IV . Q20H [facility] Rx#:[id number] Intake, IV Titration 300 Amount Sodium Chloride 0.9% 1, 300 000 ml @ 50 mls/hr IV . Q20H [facility] Rx#:[id number] Oral 580 Output: Urine 900 200 Other: Voiding Method Bedside Commode Urinal Urinal - Exam Constitutional: AOx1, cooperative Head: NC/AT Throat: Supple, no masses Respiratory: No increased work of breathing Cardiac: Regular rate and Rhythm GI: non tender, non distended Musculoskeletal: Bias Binding Folder strengths are equal bilaterally 5/5, Lower extremity strengths are equal bilaterally at 5/5. (per family, the patient's right-sided weakness waxes and wanes). multiple amputations of the digits of the right hand. Neurological: CN II-XII in tact, patient was AOx1, speech and language are normal, intermittent unilateralizing weakness, no seizure activity note on physical exam. Sensation was normal. Integementary: no rash, no erythema Psychiatric: patient is extremely confused with notations as stated previously. - Labs CBC & Chem 7: 10/20/16 05:40 10/20/16 05:40 Labs: Abnormal Lab Results - Last 24 Hours (Table) 10/20/16 Range/Units 05:40 Glucose 106 H (74-99) mg/dL Assessment and Plan (1) CVA (cerebral vascular accident) Status: Acute Plan: 1. CVA: Patient does appear to have suffered a CVA given the duration of his symptoms and increased confusion and documented MRI changes as noted previously. However the patient is a significantly poor historian as well as his generally confused. He is currently on [address] of the brain noted age- related atrophic and chronic small vessel ischemic changes without acute intracranial process. patient serum homocystine level was normal. EEG was found to be normal. Carotid Doppler noted complete right occlusion of the ICA. Lipid panel was within normal limits. At this time we'll stop the 325 mg aspirin and initiate Plavix 75 mg daily at bedtime. Also initiate 81 mg aspirin daily. Patient will also start Lipitor 80 mg daily at bedtime. Status: Neurology will continue to follow provide updates as needed or warranted. If you have any questions feel free to contact our office.
[2016-10-20] MEDS: ALPRAZolam 0.25 MG TAB PO PRN (22:06)
[2016-10-20] MEDS: LORazepam 2 MG/ML SYRINGE IV PRN (22:18)
--- NOTE | 2016-10-21 06:04 | EEG ---
DATE OF SERVICE: 10/20/2016 REASON FOR TESTING: Stroke. AGE: 85Y DESCRIPTION OF THE PROCEDURE: This EEG was performed using a 21-channel digital electroencephalograph, following the international 10 to 20 system. DESCRIPTION OF THE RECORDING: From the beginning of the tracing, and with patient's eyes closed, the background rhythm was mostly consisting of 8 to 9 Hz alpha frequency in the posterior occipital leads. No obvious asymmetry is seen. Occasional lead artifacts and muscle artifacts are seen. Photic stimulation was performed with a minimal driving response seen. No pathological waves were elicited. Occasional blink artifacts are noticed. No epileptiform discharges were seen. The patient remains awake throughout the tracing. His EKG lead showed a regular rate and rhythm. INTERPRETATION: This awake EEG can be considered within normal limits. There was no asymmetry seen. No epileptiform discharges were noticed. The absence of epileptiform discharges does not rule out the diagnosis of epilepsy, therefore, clinical correlation is recommended.
[2016-10-21 06:26] LABS: Basophils # (A) 0.1 k/uL (0-0.2); Basophils % (A) 1 %; CH 30.7; CHCM 31.1; Eosinophils # (A) 0.2 k/uL (0-0.7); Eosinophils % (A) 2 %; HCT 52.3 % (39.0-53.0); HDW 2.26; HGB 16.1 gm/dL (13.0-17.5); Luc # (Auto) 0.36; Luc % (Auto) 4; Lymphocytes % (A) 50 %; MCH 30.6 pg (25.0-35.0); MCHC 30.8 g/dL (31.0-37.0); Monocytes # (A) 0.6 k/uL (0-1.0); Monocytes % (A) 6 %; Neutrophils # (A) 3.8 k/uL (1.3-7.7); Neutrophils % (A) 38 %; RBC 5.27 m/uL (4.30-5.90); RDW 13.9 % (11.5-15.5); WBC 10.1 k/uL (3.8-10.6); WBC (Perox) 10.46
[2016-10-21 06:34] LABS: MCV 99.2 fL (80.0-100.0)
[2016-10-21 06:35] LABS: Anion Gap 12 mmol/L; Blood Urea Nitrogen 14 mg/dL (9-20); Calcium 9.1 mg/dL (8.4-10.2); Carbon Dioxide 22 mmol/L (22-30); Chloride 107 mmol/L (98-107); Glucose 89 mg/dL (74-99); Non-African American GFR(MDRD) 55 (>60 ml/min/1.73 sqM); Sodium 141 mmol/L (137-145)
[2016-10-21] MEDS: MEMANTINE 10 MG TAB PO SCH ×2 (08:50→20:20)
[2016-10-21] MEDS: ATORVASTATIN 80 MG TAB PO SCH (08:50)
[2016-10-21] MEDS: HEPARIN SODIUM,PORCINE 5,000 UNIT/ML 1 ML VIAL SQ SCH ×2 (08:50→20:20)
[2016-10-21] MEDS: ASPIRIN 81 MG CHEW PO SCH (08:50)
[2016-10-21] MEDS: CLOPIDOGREL 75 MG TAB PO SCH (08:50)
[2016-10-21 11:53] LABS: Glucose,Whole Blood 88 mg/dL (75-99)
[2016-10-21] MEDS: hydrALAZINE HCL 20 MG/ML 1 ML VIAL IVP PRN ×2 (12:04→23:20)
[2016-10-21] MEDS ORDERED: LORazepam 2 MG/ML SYRINGE IV STA ×2 (13:02→13:04)
[2016-10-21] MEDS: ALPRAZolam 0.25 MG TAB PO PRN ×2 (13:27→20:20)
[2016-10-21] MEDS ORDERED: RX INFO: IV CONTRAST WAS GIVEN 1 EACH MISC MISCELLANE PRN (13:43)
--- NOTE | 2016-10-21 14:39 | CT ---
EXAMINATION TYPE: CT brain wo/w con DATE OF EXAM: 10/21/2016 2:24 PM COMPARISON: CT brain from 2 days ago HISTORY: Confusion, head pressure CT DLP: 2144.6 mGycm Automated Exposure Control for Dose Reduction was Utilized. TECHNIQUE: CT scan of the head is performed without and with IV contrast.,CT scan of the head is perf ormed without and with without and with IV Contrast, patient injected with 80 mL of Visipaque 320. FINDINGS: Noncontrast images show no acute intracranial hemorrhage or midline shift there is ventricu lar and sulcal prominence consistent with diffuse cerebral atrophy. There is old area of encephalomal acia right parietal lobe near axial image 35 redemonstrated Postcontrast images show no suspicious en hancing intraparenchymal mass. The globes are intact and the visualized sinuses are clear. Patchy sof t tissue density left external auditory canal is felt to reflect cerumen. Vascular calcification dist al internal carotid arteries bilaterally is present. IMPRESSION: There is redemonstration of moderate diffuse cerebral atrophy and old right parietal lobe infarct posterior watershed region. No significant change from prior. No suspicious enhancing intrap arenchymal mass is noted.
--- NOTE | 2016-10-21 17:03 | MR ---
EXAMINATION TYPE: MR brain wo con DATE OF EXAM: 10/21/2016 4:46 PM COMPARISON: NONE HISTORY: Rt sided weakness T1-weighted sagittal, T2, FLAIR, and diffusion axial, and T2 coronal coronal views of the brain are s ubmitted. There is abnormal signal on diffusion within the left occipital lobe compatible with acute to subacut e ischemia. No mass effect. Moderate to extensive generalized degenerative change seen. Craniocervical junction maintained. Parti ally empty sella turcica noted. No cerebellopontine angle mass. Changes of chronic sinusitis noted. There is absence of the normal signal within the right internal carotid artery suggestive of occlusio n. There is confluent areas as well as focal areas of abnormal signal involving the white matter bilater ally which are nonspecific but most typical remote microvascular ischemia. Area of more confluent den sity in the right parietal lobe posteriorly compatible with area of previous infarct. IMPRESSION: 1. Findings are compatible with an area of acute to subacute ischemia involving the left occipital lo be and a small focus within the left thalamus. Findings telephoned to the patient's nurse. 2. Occlusion of the right ICA which is been previously reported.
--- NOTE | 2016-10-21 17:10 | P.PN ---
Subjective Date of service 10/21/2016. Progress note being dictated for Dr. Thompson. Interval history: This is a 85-year-old gentleman admitted with right-sided weakness secondary to left hemispheric acute stroke in a patient with history of CVA, TIA, dementia and multiple other medical issues. Maintained on Plavix, aspirin, statin . Confusion persist, alert and oriented 1-2. Short-term memory present, requires redirection . Assist 1 . Telemetry sinus rhythm. Denies chest pain, palpitations or increasing shortness of breath. EEG reported as normal, brain CT age-related atrophy with chronic small vessel ischemic changes , nonacute reported. Evaluated by neurology with recommendations noted. No seizure activity reported. Objective - Vital Signs Vital signs: Vital Signs Temp 96.3 F L 10/21/16 08:00 Pulse 77 10/21/16 08:00 Resp 16 10/21/16 08:00 BP 199/91 10/21/16 08:00 Pulse Ox 92 L 10/21/16 08:43 Intake & Output 10/20/16 10/21/16 10/21/16 18:59 06:59 18:59 Intake Total 580 800 240 Output Total 200 600 Balance 380 200 240 Weight 99.4 kg Intake: IV 0 800 Sodium Chloride 0.9% 1, 0 800 000 ml @ 50 mls/hr IV . Q20H [facility] Rx#:[id number] Oral 580 240 Output: Urine 200 600 Other: Voiding Method Urinal Urinal # Voids 1 1 # Bowel Movements 0 - Exam PHYSICAL EXAM: VITAL SIGNS: As above GENERAL: [Sitting up at side of bed, no acute distress] HEENT: [Pupils equal conjunctiva normal.] NECK: [Supple, no JVD] RESPIRATORY EFFORT:[Normal] LUNGS: [Clear, no rhonchi no crackles no wheezing] CARDIOVASCULAR[regular S1 and S2, no edema] GI: [Abdomen soft, nontender, positive bowel sounds.] PSYCH: [Alert and oriented -2 ,pleasantly confused, cooperative] NEURO: Speech: Speech fluent ,Strength equal in all 4 extremities, 5 out of 5. - Labs CBC & Chem 7: 10/21/16 05:49 10/21/16 05:49 Labs: Abnormal Lab Results - Last 24 Hours (Table) 10/21/16 Range/Units 05:49 MCHC 30.8 L (31.0-37.0) g/dL Lymphocytes # 5.0 H (1.0-4.8) k/uL Assessment and Plan Plan: 1. Weakness on the right secondary to left hemispheric acute stroke, old right watershed infarct per CT,]. 2. [Totally occluded right internal carotid, per carotid ultrasound, CTA 3.] Gait dysfunction. 3. [Change in mental status, acute on chronic metabolic encephalopathy]. 4. [Dementia with chronic short-term memory loss]. 5. [History of CVA, TIA]. 6. [CAD, histor of [place]. 7. [Degenerative joint disease]. 8. Sleep apnea 9. History of anxiety 10. History of claustrophobia 11. Obesity, BMI 30.1 Plan continue on current medical regime ,monitoring and symptomatic treatment. Evaluated by cardiothoracic/vascular surgery- maximizing medical therapy, no surgical intervention. Neuro recommendations noted. PT/OT recommending home / supervision.. Discharge planning in progress. Prognosis guarded given multiple complex medical issues. Further recommendations to follow. The impression and plan of care has been dictated as directed. : I performed a H&P examination of this patient and discussed the same with the dictator. I agree with the dictator's note. Any additional findings/opinions/ etc. will be noted.
--- NOTE | 2016-10-21 19:12 | P.PN ---
Subjective Principal diagnosis: New Onset CVA 10/21/16 Patient is an 85-year-old male being followed by neurology for recent CVA. However today at approximately 1300 hours, the patient began experiencing right-sided weakness, right-sided vision loss and intermittent numbness and tingling into the right upper extremity. Patient also stated that he had right cervical pain and right-sided trapezius stiffness. Nursing staff contacted Dr. Johnson via phone and I was in the hospital rounding and went to the patient's room. At initial contact stay, the patient was semi-reclined in bed with spouse and daughter at the bedside. They confirm the facts as stated above and were visibly concerned about the patient's complaints. A stat MRI of the brain was requested by Dr Johnson via phone to the nurse prior to my arrival. On arrival I notified nursing to add a stat CT of the Brain and an MRI Cervical Spine given the patients presentation and the soonest available MRI slot was in a few hours. The patient is already on 81 mg Aspirin, Plavix and Lipitor as noted in my note yesterday. 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 Objective - Vital Signs Vital signs: Vital Signs Temp 96.3 F L 10/21/16 08:00 Pulse 77 10/21/16 08:00 Resp 16 10/21/16 08:00 BP 199/91 10/21/16 08:00 Pulse Ox 92 L 10/21/16 08:43 Intake & Output 10/20/16 10/21/16 10/21/16 18:59 06:59 18:59 Intake Total 580 800 480 Output Total 200 600 Balance 380 200 480 Weight 99.4 kg Intake: IV 0 800 Sodium Chloride 0.9% 1, 0 800 000 ml @ 50 mls/hr IV . Q20H [facility] Rx#:[id number] Oral 580 480 Output: Urine 200 600 Other: Voiding Method Urinal Urinal # Voids 1 1 # Bowel Movements 0 - Exam Constitutional: AOx2, cooperative Head: NC/AT Throat: Supple, no masses Respiratory: No increased work of breathing Cardiac: Regular rate and Rhythm GI: non tender, non distended Musculoskeletal: Nitroglycerin Separator Operator strengths were unequal with right 3/5 and left 5/5, Lower extremity strengths were also unequal at 3/4 on the right and 5/5 on the left. Neurological: Patient was AOx2 with intermittent right sided blurriness with right peripheral vision loss progressing to complete vision loss, unilateralizing weakness in the RUE & RLE's were noted, right drift was noted, decreased right sided sensation to light touch in the right face, upper and lower extremities. Speech and language are normal. No seizure activity note on physical exam. No facial droop was observed. Integementary: no rash, no erythema Psychiatric: patient is extremely confused with notations as stated previously. - Labs CBC & Chem 7: 10/21/16 05:49 10/21/16 05:49 Labs: Abnormal Lab Results - Last 24 Hours (Table) 10/21/16 Range/Units 05:49 MCHC 30.8 L (31.0-37.0) g/dL Lymphocytes # 5.0 H (1.0-4.8) k/uL Assessment and Plan (1) CVA (cerebral vascular accident) Status: Acute Plan: Assessment: 1. New onset CVA: Patient does appear to have suffered another CVA today based on his MRI of the brain. MRI of the brain notes "findings are compatible with an area of acute to subacute ischemia involving the left occipital lobe and a small focus within the left thalamus." Plan: a) Continue aspirin 81 mg, Plavix 75 mg daily at bedtime and Lipitor 80 mg daily at bedtime. b) Recommend SONY to rule out cardioembolic source or PFO. c) Recommend consult to cardiology d) Reconsult PT, OT and speech therapy e) Neuro checks Q2hrs x 24 hours, then Q4 hrs thereafter d) Notify neurology with any neuro status changes immediately Status: Neurology will continue to follow provide updates as needed or warranted. If you have any questions feel free to contact our office. I discussed the patient's pertinent medical information with Dr. Johnson. He agrees with the plan of care as implemented.
--- NOTE | 2016-10-21 19:43 | PN ---
DATE OF SERVICE: 10/21/2016 This 85-year-old gentleman who was admitted weakness of the right side has possible watershed infarction of the left hemisphere. Seen and evaluated the patient along with the nurse practitioner. Please refer to the nurse practitioner's notes and impressions documented as a scribe for further information. PT and OT are also evaluating the patient at this time. Neurology is following the patient closely. Repeat CT scan of the brain showed old right parietal infarct, posterior watershed region. Guarded prognosis. Further recommendations to follow.
[2016-10-21] MEDS: DONEPEZIL 10 MG TAB PO SCH (20:20)
[2016-10-21] MEDS: SODIUM CHLORIDE 0.9% 1,000 ML IV SCH (20:24)
[2016-10-21 21:12] LABS: Glucose,Whole Blood 90 mg/dL (75-99)
[2016-10-22 06:19] LABS: Basophils % (A) 0 %; CH 31.3; CHCM 33.2; Eosinophils # (A) 0.2 k/uL (0-0.7); Eosinophils % (A) 2 %; HCT 46.9 % (39.0-53.0); HDW 2.23; HGB 15.2 gm/dL (13.0-17.5); Luc # (Auto) 0.34; Luc % (Auto) 3; Lymphocytes # (A) 4.6 k/uL (1.0-4.8); Lymphocytes % (A) 45 %; MCH 30.7 pg (25.0-35.0); MCHC 32.5 g/dL (31.0-37.0); MCV 94.7 fL (80.0-100.0); Mean Platelet Volume 7.3; Monocytes # (A) 0.6 k/uL (0-1.0); Monocytes % (A) 6 %; Neutrophils # (A) 4.4 k/uL (1.3-7.7); Neutrophils % (A) 43 %; RBC 4.95 m/uL (4.30-5.90); WBC 10.2 k/uL (3.8-10.6); WBC (Perox) 10.55
[2016-10-22 06:29] LABS: Calcium 8.8 mg/dL (8.4-10.2); Potassium 3.8 mmol/L (3.5-5.1)
[2016-10-22 06:39] LABS: Glucose,Whole Blood 89 mg/dL (75-99)
[2016-10-22] MEDS ORDERED: RX INFO: IV CONTRAST WAS GIVEN 1 EACH MISC MISCELLANE PRN (09:21)
[2016-10-22] MEDS: HEPARIN SODIUM,PORCINE 5,000 UNIT/ML 1 ML VIAL SQ SCH (09:22)
[2016-10-22] MEDS: MEMANTINE 10 MG TAB PO SCH (09:22)
[2016-10-22] MEDS: ATORVASTATIN 80 MG TAB PO SCH (09:22)
[2016-10-22] MEDS: ASPIRIN 81 MG CHEW PO SCH (09:22)
[2016-10-22] MEDS: CLOPIDOGREL 75 MG TAB PO SCH (09:22)
[2016-10-22 09:55] VITALS: RESP 18; TEMP 97.2
[2016-10-22 12:59] VITALS: BP 131/60; PULSE 84
--- NOTE | 2016-10-23 11:47 | DS ---
DATE OF ADMISSION: 10/19/2016 DATE OF DISCHARGE: 10/22/2016 FINAL DIAGNOSES: 1. Weakness on right side caused by left-sided hemispheric acute cerebrovascular accident with left occipital and small focus behind the left thalamus. 2. Occluded right ICA, which is old. 3. Gait dysfunction. 4. Change in mental status, metabolic encephalopathy again on chronic. 5. Dementia with chronic short-term memory loss. 6. History of cerebrovascular accident, transient ischemic attack. 7. Coronary artery disease, history of myocardial infarction . 8. History of degenerative joint disease. 9. History of sleep apnea. 10. History of anxiety. 11. History of claustrophobia. 12. Obesity, body mass index 30.1. 13. FULL CODE. 14. Possibly mild acute renal failure. DISCHARGE DISPOSITION: The patient will be discharged in stable condition with guarded prognosis. Discharge cleared by Neurology and multiple other medical consultants. HISTORY OF PRESENT ILLNESS: This 85-year-old gentleman with a past medical history of multiple medical problems admitted with weakness of the right side of the right leg and some change in mental status. The patient was treated in conjunction with Neurology, Dr. Johnson. MRI showed findings as before and a CAT scan was also done yesterday, which showed rather stable findings. Patient was treated symptomatically. The weakness improved and the patient was able to ambulate. At this time, the patient and family would like the patient rule out return home. The patient has been followed by Dr. Ray and Yanira France in the outpatient setting. On exam, vitals are stable. Patient is mildly confused. CARDIOVASCULAR: S1 and S2 muffled. RESPIRATORY: A few rhonchi. NERVOUS SYSTEM: Diffusely weak. DISCHARGE ADVICE: 1. Diet is cardiac. 2. Activity limited until followup. 3. Follow up with Dr. Ray in 2 to 3 days. MEDICATIONS: 1. Xanax 0.25 t.i.d. 2. Aspirin 81 mg p.o. daily. 3. Lipitor 80 mg p.o. daily. 4. Plavix 75 mg p.o. daily. 5. Aricept 10 mg q.h.s. 6. Pepcid 20 mg p.o. b.i.d. 7. Namenda XR 28 mg p.o. daily. CBC, BMP with Dr. Ray. Once again, the patient will be discharged in stable condition with guarded prognosis. Total time taken 35 minutes.
== END 2016-10-22 15:50 | disposition home or self-care (01) | DRG 64 ==
LOC: EC 11:30 → 6SEL 14:22
PROVIDERS: ADMIT Hospitalist; ATTEND Hospitalist
DX: I63.9 Cerebral infarction, unspecified (principal); G93.41 Metabolic encephalopathy; N17.9 Acute kidney failure, unspecified; R26.2 Difficulty in walking, not elsewhere classified; F03.90 Unspecified dementia, unspecified severity, without behavioral disturbance, psychotic disturbance, mood disturbance, and anxiety; I25.10 Atherosclerotic heart disease of native coronary artery without angina pectoris; G47.30 Sleep apnea, unspecified; F40.240 Claustrophobia; E66.9 Obesity, unspecified; Z68.31 Body mass index [BMI] 31.0-31.9, adult; I25.2 Old myocardial infarction; F41.9 Anxiety disorder, unspecified; M19.91 Primary osteoarthritis, unspecified site; I65.21 Occlusion and stenosis of right carotid artery; Z86.73 Personal history of transient ischemic attack (TIA), and cerebral infarction without residual deficits; Z79.899 Other long term (current) drug therapy; I10 Essential (primary) hypertension; H54.61 Unqualified visual loss, right eye, normal vision left eye
CPT/HCPCS: 36415; 70450; 70470; 70496; 70498; 70551; 71010; 80048; 80053; 80061; 81003; 82550; 82553; 83090; 83735; 84100; 84484; 85025; 85610; 85730; 93005; 93880; 94760; 95816; 96361; 96374; 96375; 99285

== ENCOUNTER → 2016-11-17 | Outpatient (CLI) | payer MEDICARE, BC ==
--- NOTE | 2016-11-18 09:27 | NM ---
EXAMINATION TYPE: NM DatScan Brain SPECT DATE OF EXAM: 11/17/2016 3:10 PM COMPARISON: CT and MRI brain October 21, 2016. HISTORY: Memory loss per order TECHNIQUE: 10 drops of Lugol's solution was administered 1 hour prior to injection as a thyroid bloc ruthie agent. After the administration of 4.66 mCi I-123 Ioflupane DaTscan. Images obtained 3 hours p ost injection. SPECT images of the brain were acquired with axial and coronal reconstructions. FINDINGS: The DaTSCAN demonstrates normal uptake of tracer throughout the striata bilaterally. IMPRESSION: There is no evidence of loss of the pre-synaptic dopaminergic terminals on this investigation.
== END ==
LOC: RADNMMAIN 09:44
PROVIDERS: ATTEND Psychiatry & Neurology Neurology
DX: R41.3 Other amnesia (principal)
CPT/HCPCS: 78607; A9584